=== PATIENT | male | born 1985 | race African-American/Black ===

== ENCOUNTER 2017-03-13 06:29 | Emergency (ER) | payer SELFPAY ==
[~2017-03-13] VITALS: Ht 182.9 cm; Wt 91.0 kg
[2017-03-13 06:30] VITALS: BP 159/96; PULSE 118; RESP 16; O2SAT 98
[2017-03-13] MEDS ORDERED: LOPERAMIDE HCL 2 MG CAP PO ONE (07:15)
[2017-03-13] MEDS ORDERED: cloNIDine HCL 0.1 MG/24 HR PATCH T-DERMAL ONE (07:15)
[2017-03-13] MEDS ORDERED: LOPE2CAP PO (07:15)
[2017-03-13] MEDS ORDERED: ONDANSETRON ODT 4 MG TAB PO ONE (07:15)
[2017-03-13] MEDS ORDERED: ZOFR4TAB3 SL (07:15)
--- NOTE | 2017-03-13 07:15 | PD ---
HPI Chief Complaint: Alcohol/Drug Intoxication Time Seen by Provider: 07:06 Travel History International Travel<30 days: No Contact w/Intl Traveler<30days: No Traveled to known affect area: No History of Present Illness HPI So 32-year-old man who presents to the emergency department complaining of opiate withdrawal. He's been using heroin and Dilaudid. [facility]. There are no beds. This presents to the emergency department. The symptoms are diarrhea, and jitteriness/ restlessness. History Past Medical History Medical History: Denies Significant Hx Past Surgical History Surgical History: No Previous Surgery Social History Alcohol Use: Yes Tobacco Use: Yes (1PPD) Allergies-Medications (Allergen,Severity, Reaction): Coded Allergies: No Known Allergies (Unverified , 03/13/17) Reported Meds & Prescriptions Reported Meds & Active Scripts Active No Active Prescriptions or Reported Medications Review of Systems Except as stated in HPI: all other systems reviewed are Neg Physical Exam Narrative GENERAL: Well-appearing 32 year-old woman, no acute distress. SKIN: Focused skin assessment warm/dry. HEAD: Atraumatic. Normocephalic. EYES: Pupils equal and round. No scleral icterus. No injection or drainage. ENT: No nasal bleeding or discharge. Mucous membranes pink and moist. NECK: Trachea midline. No JVD. CARDIOVASCULAR: Regular rate and rhythm. No murmur appreciated. RESPIRATORY: No accessory muscle use. Clear to auscultation. Breath sounds equal bilaterally. GASTROINTESTINAL: Abdomen soft, non-tender, nondistended. Hepatic and splenic margins not palpable. MUSCULOSKELETAL: No obvious deformities. No clubbing. No cyanosis. No edema. NEUROLOGICAL: Awake and alert. No obvious cranial nerve deficits. Motor grossly within normal limits. Normal speech. PSYCHIATRIC: Flat affect. Data Data Last Documented VS Vital Signs Date Time Temp Pulse Resp B/P (MAP) Pulse Ox O2 Delivery O2 Flow Rate FiO2 03/13/17 06:30 118 16 159/96 (117) 98 Room Air Orders Orders Ondansetron Odt (Zofran Odt) (03/13/17 07:15) Loperamide (Imodium) (03/13/17 07:15) Clonidine 0.1 Mg Patch.7d (Catapres-Tts (03/13/17 07:15) MDM Medical Decision Making Medical Screen Exam Complete: Yes Emergency Medical Condition: Yes Differential Diagnosis Opiate withdrawal, anxiety, dehydration, other Narrative Course 32-year-old man requesting detox. Recommend supportive treatment, outpatient follow-up. Diagnosis Primary Impression: Opiate withdrawal Additional Instructions: Use Zofran as needed for nausea or vomiting. Take loperamide as needed for diarrhea. Follow-up with [facility] for outpatient treatment. Med/Other Pt SpecificInfo: Prescription(s) given Scripts Loperamide (Loperamide) 2 Mg Cap 2 MG PO DIRECTED Y for DIARRHEA, #6 CAP 0 Refills One capsule after each loose stool. Not to exceed 8 capsules per day. Prov: Devante Barbosa MD 03/13/17 Ondansetron Odt (Zofran Odt) 4 Mg Tab 4 MG SL Q6HR Y for Nausea/Vomiting, #15 TAB 0 Refills Prov: Devante Barbosa MD 03/13/17 Disposition: 01 DISCHARGE HOME Condition: Stable Devante Barbosa MD Mar 13, 2017 07:15
[2017-03-13 07:35] VITALS: BP 148/83; TEMP 97.8
== END 2017-03-13 07:39 | disposition home or self-care (01) ==
LOC: NEPC 06:29
DX: F11.23 Opioid dependence with withdrawal (principal)
CPT/HCPCS: 99283